=== PATIENT | female | born 1975 | race Caucasian/White ===

== ENCOUNTER 2017-06-05 12:51 | Emergency (ER) | payer BC ==
[2017-06-05] MEDS ORDERED: NS 0.9% 1000 ML* 1,000 ML IV ONE (13:22)
[2017-06-05 13:44] LABS: Hematocrit 42 % (35-47); Hemoglobin 14.2 g/dl (12.0-16.0); Mean Corpuscular HGB Conc 34 g/dl (31-36); Mean Corpuscular Hemoglobin 31 pg (27-31); Mean Corpuscular Volume 93 fL (80-97); Mean Platelet Volume 8 um3 (7.4-10.4); Red Blood Count 4.56 10^6/ul (4.0-5.4); Red Cell Distribution Width 13 % (10.5-15); White Blood Count 8.3 10^3/ul (3.5-10.8)
[2017-06-05 13:59] LABS: ALT 12 U/L (7-52); AST 13 U/L (13-39); Albumin 3.9 g/dL (3.2-5.2); Alkaline Phosphatase 43 U/L (34-104); Anion Gap 6 mmol/L (2-11); BUN/Creatinine Ratio 13.2 (8-20); Blood Urea Nitrogen 9 mg/dL (6-24); C Reactive Protein 1.65 mg/L (< 5.00); CO2 Carbon Dioxide 24 mmol/L (22-32); Calcium 9.3 mg/dL (8.6-10.3); Chloride 106 mmol/L (101-111); EGFR African American 123.9 (>60); EGFR Non-African American 96.3 (>60); Glucose 91 mg/dL (70-100); Lipase 12 U/L (11.0-82.0); Potassium 3.5 mmol/L (3.5-5.0); Sodium 136 mmol/L (133-145); Total Protein 6.9 g/dL (6.4-8.9)
[2017-06-05] MEDS ORDERED: Iohexol 300* (CONTRAST) 10 ML SDV IV ONE (14:57)
--- NOTE | 2017-06-05 15:04 | RAD ---
Indication: Right flank pain. Real-time sonography of the right kidney was performed. The right kidney measures 11.0 x 5.2 x 4.6 cm. No hydronephrosis is noted. IMPRESSION: No hydronephrosis of the right kidney is noted.
--- NOTE | 2017-06-05 15:14 | RAD ---
Indication: Right lower quadrant pain. Real-time sonography of the pelvis was performed. The uterus measures 10.2 x 6.2 x 7.2 cm. Endometrial echo measures 14 mm and is heterogeneous with cystic spaces. This may be due to the phase of patient's menstrual cycle and follow-up exam is suggested to exclude endometrial hyperplasia. Right ovary measures 3.3 x 2.0 x 1.5 cm. Left ovary is not visualized. IMPRESSION: Complex endometrium which may be due to the phase of patient's menstrual cycle although endometrial hyperplasia cannot be excluded. Left ovary is not visualized.
[2017-06-05 15:55] LABS: Urine Bacteria Absent (Absent); Urine Bilirubin Negative (Negative); Urine Glucose Negative (Negative); Urine Nitrite Negative (Negative)
--- NOTE | 2017-06-05 17:14 | RAD ---
Indication: Right lower quadrant pain. Contrast: Administered 105.0 ml of OMNIPAQUE 300 mg/ml CT of the abdomen and pelvis was performed after oral and IV contrast administration. Coronal and sagittal reconstructed images were obtained. The lung bases demonstrate no pleural fluid, nodules or masses. Heart is of normal size without evidence of pericardial effusion. The liver is normal in size. No focal lesions or intrahepatic ductal dilatation is noted. Patient status post cholecystectomy. The pancreas demonstrates no mass or pancreatic duct dilatation. The spleen is normal in size. No adrenal masses are noted. The kidneys demonstrate no hydronephrosis. Scarring and calcification are noted in the medial upper pole of the left kidney likely from old pyelonephritis. No retroperitoneal lymphadenopathy is noted. No dilated loops of bowel are noted. CT of the pelvis demonstrates a thickened base of the appendix. There is a hyperenhancing mucosa of the appendix with appendix measuring up to 6 mm. This is borderline abnormal. No retroperitoneal adenopathy is noted. No dilated loops of bowel. The uterus is otherwise unremarkable. No adnexal masses are noted. The urinary bladder is unremarkable. IMPRESSION: Thickening at the base of the cecum. There is a 6 mm appendix with hyperenhancing mucosa. The possibility of acute appendicitis should be considered. Findings discussed with Dr. Jacques at 1711 hours.
[2017-06-05] MEDS ORDERED: Ketorolac INJ* 30 MG/ML 1 ML VIAL IV ONE (18:49)
[2017-06-05] MEDS ORDERED: HYDROcodone/ACETAMIN 5-325 MG* 1 TAB PO ONE (18:49)
[2017-06-05] MEDS ORDERED: O ndansetron ODT 4MG 2TAB PRPK 4 MG PAK PO ONE ×2 (18:50→18:51)
--- NOTE | 2017-06-05 18:56 | ED ---
De Crawford Tecjoon, scribed for Georges Jacques MD on 06/05/17 at 1323 . Abdominal Pain/Female - HPI Summary HPI Summary: This patient is a 41 year old female presenting to [facility] accompanied by with a chief complaint of abdominal pain since 1100 today while at work. Patient states that pain originated on her right flank (right above hip) then radiated around to bellybutton and to groin. The pain is rated 7/10 in severity currently. The patient treated the pain with Tylenol [employer], which caused pain to transition from constant to coming and going. Symptoms aggravated by general movement, movement of right leg, and palpation. Symptoms alleviated by Tylenol. Patient additionally reports nausea. Patient denies vomiting, diarrhea , dysuria, hematuria, fevers, chills, blood in stool, or vaginal discharge. Patient denies a PMHx of ovarian cyst but notes that he most recent menstrual cycle was abnormally light. Patient is not on control. - History of Current Complaint Chief Complaint: EDPat Stated Complaint: RIGHT SIDE ABD PAIN Time Seen by Provider: 06/05/17 13:05 Hx Obtained From: Patient Hx Last Menstrual Period: Current Onset/Duration: Sudden Onset, Lasting Hours - 1100, Still Present Timing: Constant Severity Initially: Severe Severity Currently: Moderate Pain Intensity: 7 Pain Scale Used: 0-10 Numeric Location: Discrete At: RLQ, Suprapubic Radiates: Yes Aggravating Factor(s): Movement, Other: - palpation Alleviating Factor(s): Medications - tylenol Associated Signs and Symptoms: Positive: Negative - vomiting, diarrhea, dysuria , hematuria, fevers, chills, blood in stool, or abnormal vaginal discharge, Other: - nausea Allergies/Adverse Reactions: Allergies Allergy/AdvReac Type Severity Reaction Status Date / Time Sulfa Antibiotics Allergy Anaphylatic Verified 06/05/17 12:58 Shock PMH/Surg Hx/FS Hx/Imm Hx Previously Healthy: Yes Endocrine/Hematology History: Denies: Hx Diabetes History: Reports: Hx Kidney Stones Denies: Other Problems/Disorders - neg: ovarian cyst Opthamlomology History: Denies: Hx Legally Blind EENT History: Denies: Hx Deafness - Surgical History Surgery Procedure, Year, and Place: TUBAL LIGATION, CHOLECYSTECTOMY Infectious Disease History: No Infectious Disease History: Denies: Traveled Outside the [place] in Last 30 Days - Family History Known Family History: Negative: Hypertension, Diabetes - Social History Alcohol Use: Weekly Hx Substance Use: No Substance Use Type: Reports: None Hx Tobacco Use: Yes Smoking Status (MU): Heavy Every Day Tobacco Smoker Review of Systems Negative: Fever, Chills Gastrointestinal: Negative - blood in stool Positive: Abdominal Pain, Nausea. Negative: Vomiting, Diarrhea Genitourinary: Negative - abnormal vaginal discharge Negative: burning, dysuria, hematuria All Other Systems Reviewed And Are Negative: Yes Physical Exam - Summary Physical Exam Summary: General: mild pain distress Skin: warm, color reflects adequate perfusion, dry Head: normal Eyes: EOMI, VENKATESH ENT: normal Neck: supple, nontender Respiratory: CTA, breath sounds present Cardiovascular: RRR Abdomen: Tenderness in RLQ. Bowel: paraumbilically positive bowel sounds. Musculoskeletal: normal, strength/ROM intact Neurological: normal, sensory/motor intact, A&O x3 Psychological: affect/mood appropriate Triage Information Reviewed: Yes Vital Signs On Initial Exam: Initial Vitals Temp Pulse Resp BP Pulse Ox 97.4 F 89 17 122/90 96 06/05/17 12:54 06/05/17 12:54 06/05/17 12:54 06/05/17 12:54 06/05/17 12:54 Vital Signs Reviewed: Yes - Narinder Coma Scale Coma Scale Total: 15 Diagnostics - Vital Signs Vital Signs Temp Pulse Resp BP Pulse Ox 06/05/17 12:54 97.4 F 89 17 122/90 96 - Laboratory Lab Results: Lab Results 06/05/17 06/05/17 06/05/17 Range/Units 13:30 13:30 13:30 WBC 8.3 (3.5-10.8) 10^3/ul RBC 4.56 (4.0-5.4) 10^6/ul Hgb 14.2 (12.0-16.0) g/dl Hct 42 (35-47) % MCV 93 (80-97) fL MCH 31 (27-31) pg MCHC 34 (31-36) g/dl RDW 13 (10.5-15) % Plt Count 238 (150-450) 10^3/ul MPV 8 (7.4-10.4) um3 Neut % (Auto) 74.3 (38-83) % Lymph % (Auto) 19.0 L (25-47) % [place] % (Auto) 4.7 (1-9) % Eos % (Auto) 1.0 (0-6) % Baso % (Auto) 1.0 (0-2) % Absolute Neuts (auto) 6.1 (1.5-7.7) 10^3/ul Absolute Lymphs (auto) 1.6 (1.0-4.8) 10^3/ul Absolute Monos (auto) 0.4 (0-0.8) 10^3/ul Absolute Eos (auto) 0.1 (0-0.6) 10^3/ul Absolute Basos (auto) 0.1 (0-0.2) 10^3/ul Absolute Nucleated RBC 0 10^3/ul Nucleated RBC % 0 INR (Anticoag Therapy) 0.89 (0.77-1.02) APTT 33.2 (26.0-36.3) seconds Sodium 136 (133-145) mmol/L Potassium 3.5 (3.5-5.0) mmol/L Chloride 106 (101-111) mmol/L Carbon Dioxide 24 (22-32) mmol/L Anion Gap 6 (2-11) mmol/L BUN 9 (6-24) mg/dL Creatinine 0.68 (0.51-0.95) mg/dL Est GFR ( Amer) 123.9 (>60) Est GFR (Non-Af Amer) 96.3 (>60) BUN/Creatinine Ratio 13.2 (8-20) Glucose 91 (70-100) mg/dL Lactic Acid (0.5-2.0) mmol/L Calcium 9.3 (8.6-10.3) mg/dL Total Bilirubin 0.30 (0.2-1.0) mg/dL AST 13 (13-39) U/L ALT 12 (7-52) U/L Alkaline Phosphatase 43 (34-104) U/L C-Reactive Protein 1.65 (< 5.00) mg/L Total Protein 6.9 (6.4-8.9) g/dL Albumin 3.9 (3.2-5.2) g/dL Globulin 3.0 (2-4) g/dL Albumin/Globulin Ratio 1.3 (1-3) Lipase 12 (11.0-82.0) U/L Beta HCG, Quant < 0.60 mIU/mL Urine Color Urine Appearance Urine pH (5-9) Ur Specific [place] (1.010-1.030) Urine Protein (Negative) Urine Ketones (Negative) Urine Blood (Negative) Urine Nitrate (Negative) Urine Bilirubin (Negative) Urine Urobilinogen (Negative) Ur Leukocyte Esterase (Negative) Urine WBC (Auto) (Absent) Urine RBC (Auto) (Absent) Ur Squamous Epith Cells (Absent) Urine Bacteria (Absent) Urine Glucose (Negative) 06/05/17 06/05/17 Range/Units 13:30 15:36 WBC (3.5-10.8) 10^3/ul RBC (4.0-5.4) 10^6/ul Hgb (12.0-16.0) g/dl Hct (35-47) % MCV (80-97) fL MCH (27-31) pg MCHC (31-36) g/dl RDW (10.5-15) % Plt Count (150-450) 10^3/ul MPV (7.4-10.4) um3 Neut % (Auto) (38-83) % Lymph % (Auto) (25-47) % [place] % (Auto) (1-9) % Eos % (Auto) (0-6) % Baso % (Auto) (0-2) % Absolute Neuts (auto) (1.5-7.7) 10^3/ul Absolute Lymphs (auto) (1.0-4.8) 10^3/ul Absolute Monos (auto) (0-0.8) 10^3/ul Absolute Eos (auto) (0-0.6) 10^3/ul Absolute Basos (auto) (0-0.2) 10^3/ul Absolute Nucleated RBC 10^3/ul Nucleated RBC % INR (Anticoag Therapy) (0.77-1.02) APTT (26.0-36.3) seconds Sodium (133-145) mmol/L Potassium (3.5-5.0) mmol/L Chloride (101-111) mmol/L Carbon Dioxide (22-32) mmol/L Anion Gap (2-11) mmol/L BUN (6-24) mg/dL Creatinine (0.51-0.95) mg/dL Est GFR ( Amer) (>60) Est GFR (Non-Af Amer) (>60) BUN/Creatinine Ratio (8-20) Glucose (70-100) mg/dL Lactic Acid 0.5 (0.5-2.0) mmol/L Calcium (8.6-10.3) mg/dL Total Bilirubin (0.2-1.0) mg/dL AST (13-39) U/L ALT (7-52) U/L Alkaline Phosphatase (34-104) U/L C-Reactive Protein (< 5.00) mg/L Total Protein (6.4-8.9) g/dL Albumin (3.2-5.2) g/dL Globulin (2-4) g/dL Albumin/Globulin Ratio (1-3) Lipase (11.0-82.0) U/L Beta HCG, Quant mIU/mL Urine Color Straw Urine Appearance Clear Urine pH 6.0 (5-9) Ur Specific [place] 1.004 L (1.010-1.030) Urine Protein Negative (Negative) Urine Ketones Negative (Negative) Urine Blood 1+ H (Negative) Urine Nitrate Negative (Negative) Urine Bilirubin Negative (Negative) Urine Urobilinogen Negative (Negative) Ur Leukocyte Esterase Negative (Negative) Urine WBC (Auto) Absent (Absent) Urine RBC (Auto) Trace(0-2/hpf) (Absent) Ur Squamous Epith Cells Present H (Absent) Urine Bacteria Absent (Absent) Urine Glucose Negative (Negative) Result Diagrams: 06/05/17 13:30 06/05/17 13:30 Lab Statement: Any lab studies that have been ordered have been reviewed, and results considered in the medical decision making process. - CT CT Abd/Pel CT Interpretation: Positive (See Comments) - IMPRESSION: Thickening at the base of the cecum. There is a 6 mm appendix with hyperenhancing mucosa. The possibility of acute appendicitis should be considered. Findings discussed with Dr. Jacques at 1711 hours. ED physician has reviewed this radiology report. CT Interpretation Completed By: Radiologist - Additional Comments Diagnostic Additional Comments: US RENAL reveals, per radiologist, IMPRESSION: No hydronephrosis of the right kidney is noted. ED physician has reviewed this radiology report. US TRANSVAGINAL reveals, per radiologist, IMPRESSION: Complex endometrium which may be due to the phase of patient's menstrual cycle although endometrial hyperplasia cannot be excluded. Left ovary is not visualized. ED physician has reviewed this radiology report. Abdominal Pain Fem Course/Dx - Course Course Of Treatment: Bloodwork Obtained. Urinalysis Obtained. Medications reviewed. Allergies noted. DR NG, SURGERY, SAW PATIENT IN ED TO EVALUATE FOR POSSIBLE APPENDICITIS. HE DOES NOT BELIEVE THIS IS APPENDICITIS AT THIS TIME. PAIN IMPROVED IN ED WITH NO PAIN MEDICATION. DISCUSSED RESULTS WITH PATIENT AND HER TO INCLUDE THE EXACT CAUSE OF HER PAIN IS NOT DETERMINED AT THIS TIME AND SHE NEEDS TO RETURN TO THE EMERGENCY DEPARTMENT FOR ANY WORSENING OF HER CONDITION OR QUESTIONS/CONCERNS; SHE AGREES. F/U PMD; RETURN IF WORSE. - Diagnoses Provider Diagnoses: Abdominal pain, right lower quadrant Discharge - Discharge Plan Condition: Stable Disposition: HOME Patient Education Materials: Abdominal Pain (ED) Referrals: Deon ROBERTSON,Alan Chen [Primary Care Provider] - Additional Instructions: FOLLOW UP WITH YOUR DOCTOR. THE EXACT CAUSE OF YOUR ABDOMINAL PAIN IS NOT DETERMINED AT THIS TIME; RETURN TO THE EMERGENCY DEPARTMENT FOR ANY WORSENING OF YOUR CONDITION; PAIN, FEVER, VOMITING, YOU FEEL ILL OR QUESTIONS OR CONCERNS. The documentation as recorded by the De pittman Tecjoon accurately reflects the service I personally performed and the decisions made by me, Georges Jacques MD.
[2017-06-05 19:33] VITALS: BP 108/68
[2017-06-05] MEDS ORDERED: Ondansetron ODT TAB* 4 MG PO ONE (20:00)
--- NOTE | 2017-06-06 00:13 | CONS ---
CC: Alan Chavarria MD SURGICAL CONSULTATION: DATE OF CONSULT: 06/05/17 LOCATION: In the emergency room. CHIEF COMPLAINT: Right side abdominal pain. HISTORY OF PRESENT ILLNESS: This is a 41-year-old female with history of kidney stones, who presented to [facility] Emergency Room with a sudden onset of right flank pain radiating towards the right lower quadrant and across the abdomen. This has began about 11:30 a.m. today when she was simply sitting on a table. She states the pain was such that she felt she needed to stand up and change position; however, this did not alleviate her pain. She experienced nausea that subsequently subsided without any vomiting. She denies chills or fevers. She denies diarrhea or constipation and had a bowel movement this morning. She reports that she took some Tylenol without relief and subsequently she had her drive her into the emergency room. The patient presented to the emergency room at approximately 1 o'clock and she was then evaluated with blood work and imaging. Her CBC and chemistries were normal with normal CRP and her urine showed 1+ blood with trace rbc's. She underwent an ultrasound of the right kidney which did not reveal hydronephrosis and subsequently underwent a transvaginal ultrasound as well as a CT scan of the abdomen and pelvis with contrast. On the transvaginal ultrasound, she was noted to have a complex endometrium and the left ovary was not visualized. The right ovary appeared normal. On the CT scan, she was noted to have thickening at the base of the cecum and a 6-mm appendix with hyper-enhancing mucosa. Based on those findings, a surgical consultation was requested. At the time I saw the patient, she reports she was feeling better and had received no pain medication and no antiemetics. She reports that she is not hungry. She complains of some abdominal bloating. She no longer has any nausea. She denies any similar symptoms in the past. States when she had her kidney stones, she had back pain. She does admit to exposure to ill individuals as she works in a [employer]. She denies dysuria and states she is currently menstruating, but feels that her period is less heavy than typical. PAST MEDICAL HISTORY: Significant for history of reflux disease. PAST SURGICAL HISTORY: Significant for laparoscopic cholecystectomy and bilateral tubal ligation. MEDICATIONS: None. ALLERGIES: SULFA DRUGS have caused rash and difficulty breathing. FAMILY HISTORY: Mother has obesity and diabetes. Father in his 80s of unknown causes. SOCIAL HISTORY: She is a 20-pack year cigarette smoker. She drinks 6 alcoholic beverages a week on average. She denies other drug use. She is and she is employed. REVIEW OF SYSTEMS: A 14-point review was performed and was significant for the above positives and negatives, otherwise was negative. PHYSICAL EXAM: She is an overweight 41-year-old female, lying in the emergency room stretcher, in no acute distress. Her head is normocephalic and atraumatic. Sclerae anicteric. Mucous membranes are moist. She has no other rhinorrhea. Her abdomen has well-healed scars from prior laparoscopic procedures, is slightly protuberant with mild diffuse tenderness in the left lower quadrant greater than right with no Rovsing's sign. She has no hepatomegaly or splenomegaly. There is no rebound or guarding. The patient was asked to stand and was able to jump up and down without eliciting any pain. DIAGNOSTIC STUDIES/LAB DATA: As reported above and imaging data as reported above. The CT scan images were reviewed personally by me. IMPRESSION: A 41-year-old female with history of kidney stones with right flank pain, initially localizing to right lower quadrant with nonspecific GI complaints and no fever, leukocytosis, or elevation of her CRP. Findings are not suspicious for appendicitis and I would be more suspicious of ureterolithiasis, possibly early presentation of a viral GI illness. PLAN/RECOMMENDATIONS: I discussed my findings with the patient and her who accompanied her. I explained the differential diagnosis and I recommended against any operative intervention at this timeand I believe it is reasonable for her to be discharged home if she is tolerating oral intake. Disposition will be determined by Dr. Marcelo in the ED. [id number]/[facility] #: [id number] [place]
== END 2017-06-05 19:30 | disposition home or self-care (01) ==
LOC: ED 12:51
DX: R10.31 Right lower quadrant pain (principal); F17.200 Nicotine dependence, unspecified, uncomplicated; Z88.2 Allergy status to sulfonamides
CPT/HCPCS: 36415; 74177; 76775; 76830; 80053; 81003; 81015; 83605; 83690; 84702; 85025; 85610; 85730; 86140; 96374; 99285; A9270-GY; J1885; Q9967

== ENCOUNTER 2019-04-26 23:05 | Observation (INO) | payer BC ==
[2019-04-26 23:40] LABS: Urine Appearance Cloudy; Urine Bacteria Absent (Absent); Urine Bilirubin Negative (Negative); Urine Blood 3+ (Negative); Urine Color Yellow; Urine Glucose Negative (Negative); Urine Ketones Trace (Negative); Urine Nitrite Negative (Negative); Urine Protein Negative (Negative); Urine Red Blood Cell 2+(6-10/hpf) (Absent); Urine Specific Gravity 1.024 (1.010-1.030); Urine Squamous Epithelial Cell Present (Absent); Urine Urobilinogen Negative (Negative); Urine White Blood Cell Absent (Absent)
[2019-04-27] MEDS ORDERED: Ondansetron INJ* 2 MG/ML VIAL IV ONE (00:34)
[2019-04-27] MEDS ORDERED: Ketorolac INJ* 30 MG/ML 1 ML VIAL IV PUSH ONE (00:34)
[2019-04-27] MEDS ORDERED: NS 0.9% 1000 ML** 1,000 ML IV ONE ×3 (00:34→06:16)
[2019-04-27 00:39] LABS: ABS Eosinophils 0.1 10^3/ul (0-0.6); ABS Lymphocytes 1.2 10^3/ul (1.0-4.8); ABS Monocytes 0.5 10^3/ul (0-0.8); ABS Neutrophils 6.5 10^3/ul (1.5-7.7); Eosinophil % 0.9 %; Hematocrit 39 % (35-47); Hemoglobin 13.5 g/dL (12.0-16.0); Lymphocyte % 14.3 %; Mean Corpuscular HGB Conc 35 g/dL (31-36); Mean Corpuscular Hemoglobin 32 pg (27-31); Mean Corpuscular Volume 92 fL (80-97); Mean Platelet Volume 7.7 fL (7.4-10.4); Platelet Count 199 10^3/uL (150-450); Red Blood Count 4.25 10^6 /uL (3.70-4.87); Red Cell Distribution Width 14 % (10-15); White Blood Count 8.3 10^3/uL (3.5-10.8)
[2019-04-27 00:57] LABS: ALT 13 U/L (7-52); AST 14 U/L (13-39); Albumin/Globulin Ratio 1.4 (1-3); Alkaline Phosphatase 46 U/L (34-104); Anion Gap 4 mmol/L (2-11); BUN/Creatinine Ratio 23.6 (8-20); Blood Urea Nitrogen 17 mg/dL (6-24); C Reactive Protein 9.98 mg/L (<8.01); CO2 Carbon Dioxide 25 mmol/L (22-32); Chloride 106 mmol/L (101-111); EGFR Non-African American 89.3 (>60); Globulin 2.9 g/dL (2-4); Glucose 101 mg/dL (70-100); Potassium 3.6 mmol/L (3.5-5.0); Sodium 135 mmol/L (135-145); Total Protein 6.9 g/dL (6.4-8.9)
--- NOTE | 2019-04-27 01:05 | ED ---
GI/ HPI - HPI Summary HPI Summary: 43 year old female presents with abdominal pain today. States that is greatest on her right side. She states that she's had nausea vomiting. States she has not been passing any gas. Has not had a bowel movement in a while. She denies any fevers. Has had her gallbladder removed. Has history kidney stones with lithotripsy done in [place] recently. She states it does not feel like kidney stones in the past. she denies any flank pain. She denies any dysuria or hematuria. Is currently on her period. Hasn't taking anything for the pain. States pain is severe. Denies any chest pain and shortness of breath. no fevers. - History of Current Complaint Chief Complaint: EDAbdPain Time Seen by Provider: 04/27/19 00:19 Stated Complaint: ABDOMINAL PAIN PER PT Hx Last Menstrual Period: Current Pain Intensity: 10 - Allergy/Home Medications Allergies/Adverse Reactions: Allergies Allergy/AdvReac Type Severity Reaction Status Date / Time Sulfa (Sulfonamide Allergy Anaphylatic Verified 04/27/19 00:49 Antibiotics) Shock Home Medications: Home Medications NK [No Home Medications Reported] 04/27/19 [History Confirmed 04/27/19] PMH/Surg Hx/FS Hx/Imm Hx Endocrine/Hematology History: Denies: Hx Diabetes Cardiovascular History: Denies: Hx Hypertension History: Reports: Hx Kidney Stones Denies: Hx Renal Disease, Other Problems/Disorders - neg: ovarian cyst Sensory History: Denies: Hx Legally Blind, Hx Deafness Opthamlomology History: Denies: Hx Legally Blind - Surgical History Surgery Procedure, Year, and Place: TUBAL LIGATION, CHOLECYSTECTOMY Infectious Disease History: No Infectious Disease History: Denies: Traveled Outside the [place] in Last 30 Days - Family History Known Family History: Negative: Hypertension, Diabetes - Social History Alcohol Use: Occasionally Hx Substance Use: No Substance Use Type: Reports: None Hx Tobacco Use: Yes Smoking Status (MU): Heavy Every Day Tobacco Smoker Review of Systems Negative: Fever Negative: Chest Pain Negative: Shortness Of Breath Positive: Abdominal Pain, Vomiting, Nausea. Negative: Diarrhea All Other Systems Reviewed And Are Negative: Yes Physical Exam Triage Information Reviewed: Yes Vital Signs On Initial Exam: Initial Vitals Temp Pulse Resp BP Pulse Ox 98.6 F 92 18 123/86 98 04/26/19 23:08 04/26/19 23:08 04/26/19 23:08 04/26/19 23:08 04/26/19 23:08 Vital Signs Reviewed: Yes Appearance: Positive: Well-Appearing Skin: Positive: Warm, Dry Head/Face: Positive: Normal Head/Face Inspection Eyes: Positive: Normal, Conjunctiva Clear ENT: Positive: Pharynx normal Respiratory/Lung Sounds: Positive: Clear to Auscultation, Breath Sounds Present Cardiovascular: Positive: Normal, RRR Abdomen Description: Positive: Soft, Other: - tenderness greatest in RLQ Bowel Sounds: Positive: Absent Musculoskeletal: Positive: Normal Neurological: Positive: Normal Psychiatric: Positive: Normal Procedures - Sedation Patient Received Moderate/Deep Sedation with Procedure: No Diagnostics - Vital Signs Vital Signs Temp Pulse Resp BP Pulse Ox 04/27/19 00:14 94 102/69 92 04/26/19 23:08 98.6 F 92 18 123/86 98 - Laboratory Lab Results: Lab Results 04/26/19 04/27/19 04/27/19 Range/Units 23:26 00:30 00:30 WBC 8.3 (3.5-10.8) 10^3/uL RBC 4.25 (3.70-4.87) 10^6 /uL Hgb 13.5 (12.0-16.0) g/dL Hct 39 (35-47) % MCV 92 (80-97) fL MCH 32 H (27-31) pg MCHC 35 (31-36) g/dL RDW 14 (10-15) % Plt Count 199 (150-450) 10^3/uL MPV 7.7 (7.4-10.4) fL Neut % (Auto) 78.0 % Lymph % (Auto) 14.3 % Redwood % (Auto) 6.4 % Eos % (Auto) 0.9 % Baso % (Auto) 0.4 % Absolute Neuts (auto) 6.5 (1.5-7.7) 10^3/ul Absolute Lymphs (auto) 1.2 (1.0-4.8) 10^3/ul Absolute Monos (auto) 0.5 (0-0.8) 10^3/ul Absolute Eos (auto) 0.1 (0-0.6) 10^3/ul Absolute Basos (auto) 0.0 (0-0.2) 10^3/ul Absolute Nucleated RBC 0.0 10^3/ul Nucleated RBC % 0.0 Sodium 135 (135-145) mmol/L Potassium 3.6 (3.5-5.0) mmol/L Chloride 106 (101-111) mmol/L Carbon Dioxide 25 (22-32) mmol/L Anion Gap 4 (2-11) mmol/L BUN 17 (6-24) mg/dL Creatinine 0.72 (0.51-0.95) mg/dL Est GFR ( Amer) 108.0 (>60) Est GFR (Non-Af Amer) 89.3 (>60) BUN/Creatinine Ratio 23.6 H (8-20) Glucose 101 H (70-100) mg/dL Lactic Acid (0.5-2.0) mmol/L Calcium 9.0 (8.6-10.3) mg/dL Total Bilirubin 0.60 (0.2-1.0) mg/dL AST 14 (13-39) U/L ALT 13 (7-52) U/L Alkaline Phosphatase 46 (34-104) U/L C-Reactive Protein 9.98 H (<8.01) mg/L Total Protein 6.9 (6.4-8.9) g/dL Albumin 4.0 (3.2-5.2) g/dL Globulin 2.9 (2-4) g/dL Albumin/Globulin Ratio 1.4 (1-3) Lipase < 10 L (11.0-82.0) U/L Beta HCG, Quant 0.60 mIU/mL Urine Color Yellow Urine Appearance Cloudy Urine pH 5.0 (5-9) Ur Specific Blessing 1.024 (1.010-1.030) Urine Protein Negative (Negative) Urine Ketones Trace A (Negative) Urine Blood 3+ A (Negative) Urine Nitrate Negative (Negative) Urine Bilirubin Negative (Negative) Urine Urobilinogen Negative (Negative) Ur Leukocyte Esterase Negative (Negative) Urine WBC (Auto) Absent (Absent) Urine RBC (Auto) 2+(6-10/hpf) A (Absent) Ur Squamous Epith Cells Present A (Absent) Urine Bacteria Absent (Absent) Urine Glucose Negative (Negative) 04/27/19 Range/Units 00:30 WBC (3.5-10.8) 10^3/uL RBC (3.70-4.87) 10^6 /uL Hgb (12.0-16.0) g/dL Hct (35-47) % MCV (80-97) fL MCH (27-31) pg MCHC (31-36) g/dL RDW (10-15) % Plt Count (150-450) 10^3/uL MPV (7.4-10.4) fL Neut % (Auto) % Lymph % (Auto) % Redwood % (Auto) % Eos % (Auto) % Baso % (Auto) % Absolute Neuts (auto) (1.5-7.7) 10^3/ul Absolute Lymphs (auto) (1.0-4.8) 10^3/ul Absolute Monos (auto) (0-0.8) 10^3/ul Absolute Eos (auto) (0-0.6) 10^3/ul Absolute Basos (auto) (0-0.2) 10^3/ul Absolute Nucleated RBC 10^3/ul Nucleated RBC % Sodium (135-145) mmol/L Potassium (3.5-5.0) mmol/L Chloride (101-111) mmol/L Carbon Dioxide (22-32) mmol/L Anion Gap (2-11) mmol/L BUN (6-24) mg/dL Creatinine (0.51-0.95) mg/dL Est GFR ( Amer) (>60) Est GFR (Non-Af Amer) (>60) BUN/Creatinine Ratio (8-20) Glucose (70-100) mg/dL Lactic Acid 0.5 (0.5-2.0) mmol/L Calcium (8.6-10.3) mg/dL Total Bilirubin (0.2-1.0) mg/dL AST (13-39) U/L ALT (7-52) U/L Alkaline Phosphatase (34-104) U/L C-Reactive Protein (<8.01) mg/L Total Protein (6.4-8.9) g/dL Albumin (3.2-5.2) g/dL Globulin (2-4) g/dL Albumin/Globulin Ratio (1-3) Lipase (11.0-82.0) U/L Beta HCG, Quant mIU/mL Urine Color Urine Appearance Urine pH (5-9) Ur Specific Blessing (1.010-1.030) Urine Protein (Negative) Urine Ketones (Negative) Urine Blood (Negative) Urine Nitrate (Negative) Urine Bilirubin (Negative) Urine Urobilinogen (Negative) Ur Leukocyte Esterase (Negative) Urine WBC (Auto) (Absent) Urine RBC (Auto) (Absent) Ur Squamous Epith Cells (Absent) Urine Bacteria (Absent) Urine Glucose (Negative) Result Diagrams: 04/27/19 00:30 04/27/19 00:30 Lab Statement: Any lab studies that have been ordered have been reviewed, and results considered in the medical decision making process. Re-Evaluation - Re-Evaluation First Eval Re-Evaluation Time: 01:41 Change: Improved Comment: feeling better, pain resolved GIGU Course/Dx - Course Course Of Treatment: 43 year old female presents with abdominal pain today. States that is greatest on her right side. admits to nausea vomiting. admits to constipation and is not passing gas. Has had her gallbladder removed. Has history kidney stones with lithotripsy done in [place] recently. On exam tenderness greatest on the right side of abdomen. Normal wbc. CRP normal. Urine shows hematuria which may be due to menses. patient will be signed out to dr grissom pending CT. - Diagnoses Differential Diagnoses - Female: Appendicitis, Bowel Obstruction, Ureteral Calculi Provider Diagnoses: Abdominal pain Discharge ED - Sign-Out/Discharge Documenting (check all that apply): Sign-Out Patient Signing out patient TO: Henry Grissom - Discharge Plan Referrals: Deon ROBERTSON,Alan Chen [Primary Care Provider] -
[2019-04-27] MEDS ORDERED: Iohexol 300* (CONTRAST) 10 ML SDV IV ONE (02:12)
--- NOTE | 2019-04-27 03:44 | ED ---
Progress - Progress Note Progress Note: Patient is received as a sign-out from NONI Kristy Cassandra at [place] shift end at approximately 0230 04/27/[address] ABD/PEL. CT ABD/PEL IMPRESSION: 1. Slightly prominent appendix. Acute appendicitis cannot be entirely excluded. 2. Cholecystectomy. 3. Scarring and calyceal cyst involving the upper pole of the left kidney. THIS REPORT WAS REVIEWED BY DR. GILL. 0408 - Results of CT ABD/PEL were discussed with the patient. General surgery to be contacted. Re-Evaluation - Re-Evaluation First Eval Re-Evaluation Time: 04:08 Comment: 0408 - Results of CT ABD/PEL were discussed with the patient. General surgery to be contacted. Second Eval Re-Evaluation Time: 04:27 Comment: Surgery consult was discussed with the patient, she is agreeable with plan of care. Course/Dx - Course Course Of Treatment: Patient is received as a sign-out from NONI Kristy Cassandra at [place] shift end at approximately 0230 04/27/[address] ABD/PEL. CT ABD/PEL IMPRESSION: 1. Slightly prominent appendix. Acute appendicitis cannot be entirely excluded. 2. Cholecystectomy. 3. Scarring and calyceal cyst involving the upper pole of the left kidney. THIS REPORT WAS REVIEWED BY DR. GILL. 0408 - Results of CT ABD/PEL were discussed with the patient. 0419 - Patient's case was discussed with general surgery, Dr. Alysia Kc. Patient will be observed in ED and repeat CBC to be obtained. By 7 am the toradol will have worn off and we will see if her pain progresses. If she develops more pain and/ or leukocytosis I think she should be seen by a general surgeon. Patient is signed-out to Dr. Barone at 0700 04/27/19 shift change pending CBC and further workup as needed. - Diagnoses Provider Diagnoses: Appendicitis - Provider Notifications Discussed Care Of Patient With: Alysia Kc Time Discussed With Above Provider: 04:19 Instructed by Provider To: Other - 0406 - Dr. Farah called with results of CT ABD/PEL; 0419 - Patient's case was discussed with general surgery, Dr. Alysia Kc. Patient will be observed in ED and repeat CBC to be obtained. Discharge ED - Sign-Out/Discharge Documenting (check all that apply): Sign-Out Patient, Receiving Sign-Out Signing out patient TO: Darcy Barone Receiving patient FROM: Rosy Trujillo - Discharge Plan Condition: Stable Disposition: ADMITTED TO [facility] - Billing Disposition and Condition Condition: STABLE Disposition: Admitted to [facility] - Attestation Statements Document Initiated by Miguel: Yes Documenting Scribe: MARIMAR FISHER Provider For Whom Miguel is Documenting (Include Credential): SHANTAL GILL MD Scribe Attestation: IMARIMAR, scribed for SHANTAL GILL MD on 04/27/19 at 1913. Scribe Documentation Reviewed: Yes Provider Attestation: The documentation as recorded by the MARIMAR pittman accurately reflects the service I personally performed and the decisions made by me, SHANTAL GILL MD Status of Scribe Document: Viewed
[2019-04-27] MEDS ORDERED: Morphine 4 MG/ML VIAL (1 ml) 4 MG/ML VIAL IV ONE (05:41)
[2019-04-27 07:08] LABS: ABS Eosinophils 0.1 10^3/ul (0-0.6); ABS Lymphocytes 1.4 10^3/ul (1.0-4.8); ABS Monocytes 0.3 10^3/ul (0-0.8); ABS Neutrophils 4.1 10^3/ul (1.5-7.7); Eosinophil % 0.9 %; Hematocrit 36 % (35-47); Hemoglobin 12.1 g/dL (12.0-16.0); Lymphocyte % 24.2 %; Mean Corpuscular HGB Conc 34 g/dL (31-36); Mean Corpuscular Hemoglobin 32 pg (27-31); Mean Corpuscular Volume 93 fL (80-97); Mean Platelet Volume 7.7 fL (7.4-10.4); Nucleated Red Blood Cells % 0.1; Platelet Count 156 10^3/uL (150-450); Red Blood Count 3.82 10^6 /uL (3.70-4.87); Red Cell Distribution Width 13 % (10-15); White Blood Count 5.9 10^3/uL (3.5-10.8)
--- NOTE | 2019-04-27 07:15 | ED ---
Progress - Progress Note Progress Note: This patient is a sign out from Dr. Whitmore to Dr. Barone pending repeat labs. Course/Dx - Course Course Of Treatment: This pt was signed out by Dr. Whitmore pending repeat labs. Discussed the case with Dr. Kc, surgeon, who will have surgery consult for patient. Surgery came and evaluated the patient. Pt will be admitted to surgery. - Diagnoses Provider Diagnoses: Appendicitis - Provider Notifications Discussed Care Of Patient With: Alysia Kc Time Discussed With Above Provider: 07:19 Instructed by Provider To: Other - Discussed the case with Dr. Kc, surgeon, who reports surgery will consult on the patient. Discharge ED - Sign-Out/Discharge Documenting (check all that apply): Patient Departure - Admit to [facility], Receiving Sign-Out Receiving patient FROM: Henry Whitmore - Discharge Plan Condition: Stable Disposition: ADMITTED TO [facility] - Billing Disposition and Condition Condition: STABLE Disposition: Admitted to [facility] - Attestation Statements Document Initiated by Miguel: Yes Documenting Scribe: Monique Day Provider For Whom Miguel is Documenting (Include Credential): Darcy Barone MD Scribe Attestation: Monique Crawford, scribed for Darcy Barone MD on 04/27/19 at 1326. Scribe Documentation Reviewed: Yes Provider Attestation: The documentation as recorded by the Monique pittman accurately reflects the service I personally performed and the decisions made by Darcy martin MD Status of Scribe Document: Viewed
[2019-04-27] MEDS ORDERED: Lactated Ringers 1000 ML Bag* 1,000 ML IV ONE (09:06)
[2019-04-27] MEDS ORDERED: Acetaminophen TAB* 325 MG PO PRN (09:18)
[2019-04-27] MEDS ORDERED: HYDROmorphone INJ* 0.5 MG/0.5 ML SYRINGE IV SLOW PU PRN (09:18)
--- NOTE | 2019-04-27 09:41 | HP ---
CC: [facility] [[email or web address]] Clinic in [facility].* DATE OF ADMISSION: 04/27/19 ATTENDING SURGEON: Dr. Alysia Kc * (dictated by NONI Jimenez) CHIEF COMPLAINT: Abdominal pain. HISTORY OF PRESENT ILLNESS: This is a 43-year-old, generally healthy smoker who noted onset of right-sided abdominal pain beginning yesterday afternoon around 2 p.m. She felt that she needed to move her bowels, but was unable. Pain was described as colicky and beginning in the right lower quadrant but eventually extending to the area under the umbilicus. It has been associated with anorexia and nausea, but no vomiting. She denies fever or chills. Pain at its peak has been 10/10, but at present she states it is 5/10. She has received both Toradol and morphine here in the [place]. She's not had similar pain in the past. She does have a history of kidney stones; and, in fact, has a small non-obstructing punctate stone on the right, but states that this pain is very dissimilar to previous kidney stones. She's not had any recent suspect food ingestion or travel history. Her only previous abdominal surgeries have been laparoscopic cholecystectomy and tubal ligation. PAST MEDICAL HISTORY: 1. Active smoker (attempting to quit, and has a prescription for Chantix which she has not yet started). 2. Nephrolithiasis (had recent procedure, possibly ESWL though she's not sure, in [place], with stent placement which was since removed.) PAST SURGICAL HISTORY: Include above-noted procedures as well as cyst removal from the left axilla. No reported anesthesia problems. CURRENT MEDICATIONS: None. (She does have an Albuterol MDI which she uses about once a year.) DRUG ALLERGIES: SULFA (difficulty breathing). She also has a GI sensitivity to a second antibiotic which she cannot recall the name of. FAMILY HISTORY: Negative for anesthesia problems, bleeding or clotting problems. SOCIAL HISTORY: Patient lives with her boyfriend. She has four daughters, two of which live at home. She's a smoker of one pack per day, and is anticipating quitting. She drinks up to two drinks per day, but not every day. She denies any recreational drug use. 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 REVIEW OF SYSTEMS: General - as above per HPI. No other recent constitutional symptoms or acute illnesses. Her weight has been stable. Skin - no rashes or lesions of note. HEENT - no problems noted other than recent vision check with acuity changes. Cardiovascualr - no chest pain, palpitations, history of heart murmur or hypertension. Respiratory - smoking history as noted. She does use an Albuterol inhaler, but rarely. No recent or acute changes. GI - as above per HPI. - she does have hematuria, but has her menses at present. No other additions. 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 Endocrine - no diabetes or thyroid dysfunction. PHYSICAL EXAMINATION GENERAL: Height 5 ft 7 inches, weight 180 lbs. Well nourished, somewhat-obese female in no acute distress. She appears mildly uncomfortable. Skin warm and dry, no suspicious rashes or lesions. VITAL SIGNS: Temperature 98.6, blood pressure ranging from 78-110/53-81, pulse 84, respirations 16, room air saturation 95%. HEENT: Pupils equal, round and reactive. EOMs intact. No conjunctival pallor or scleral icterus. Oropharynx - mucous membranes slightly dry, no intra-oral lesions. NECK: No lymphadenopathy, thyromegaly or masses. HEART: Regular rate and rhythm, no murmur noted. LUNGS: Clear to auscultation. No rales or wheezes. BREASTS: Not examined. ABDOMEN: Well-healed prior laparoscopic incisions, mildly obese. Bowel sounds are present and normoactive. Abdomen is soft with moderate tenderness ranging from McBurney's point to the suprapubic area, but concentrated most in the right lower quadrant. There's some mild rebound, no referred tenderness, no guarding or rigidity. No palpable masses or hernias. GENITALIA AND RECTAL: Not done. BACK: No spinous process or CVA tenderness. EXTREMITIES: No edema. NEUROLOGICAL: Grossly intact. LABORATORY: Noted white blood cell count initially 8,300, repeat 5,900; hemoglobin 13.5, repeat 12.1. CRP is mildly elevated at 10. Liver functions, lipase are normal. HCG is negative. CT with IV fluoro contrast was personally reviewed as well as the report; it does show a punctate, non-obstructing right renal calculus as well as scarring in the upper pole of the left kidney. There is a prominent appendix measuring up to 8 mm in diameter with mild periappendiceal stranding consistent with possible appendicitis. IMPRESSION: Acute appendicitis. PLAN: Patient also seen by Dr. Alysia Kc and will discuss findings and plan, likely for laparoscopic appendectomy. NONI JIMENEZ [id number]/[facility] #: [id number] [facility] HOSPITALShelbi
[2019-04-27] MEDS ORDERED: Piperacillin/Tazobactam VIAL*) 3.375 GM in NS 0.9% 100 ML* 100 ML IVPB SCH (10:00)
[2019-04-27] MEDS ORDERED: Buffered Lidocaine 1% SYRIN* 1 ML/SYRINGE INTRADERM ONE (10:10)
[2019-04-27] MEDS ORDERED: Famotidine IV* 10 MG/ML 2 ML (20 mg) IV ONE (10:10)
[2019-04-27] MEDS ORDERED: Levalbuterol 0.63MG/3ML NEB* UNIT OF USE INH ONE (10:10)
[2019-04-27] MEDS ORDERED: Dexamethasone IV* 4 MG/ML 1 ML (4 MG) IV SLOW PU ONE (10:10)
[2019-04-27] MEDS ORDERED: PROCHLORPERAZINE INJ 5 MG/ML 2 ML VIAL IV PRN (10:12)
[2019-04-27] MEDS ORDERED: Naloxone* 0.4 MG/ML 1 ML VIAL IV PRN (10:12)
[2019-04-27] MEDS ORDERED: Scopolamine 1.5 mg* PATCH TRANSDERM PRN (10:12)
[2019-04-27] MEDS ORDERED: DiMENhydriNATE IV* 50 MG/ML VIAL IV PUSH PRN (10:12)
[2019-04-27] MEDS ORDERED: HYDROmorphone INJ1* 1 MG/ML SYRINGE IV PRN (10:12)
[2019-04-27] MEDS ORDERED: fentaNYL* 50 MCG/ML 2 ML VIAL (100 MCG VIAL) IV PRN (10:12)
[2019-04-27] MEDS ORDERED: Lactated Ringers 1000 ML Bag* 1,000 ML IV SCH (11:00)
[2019-04-27] MEDS: NS 0.9% 1000 ML** 1,000 ML IV SCH ×2 (11:08→20:30)
--- NOTE | 2019-04-27 11:08 | PN ---
Progress Note - Progress Note Date of Service: 04/27/19 SOAP: Subjective: Patient seen and examined CT reviewed Care discussed with NONI Mathis Objective: Temp Pulse Resp BP Pulse Ox 98.7 F 78 18 127/76 98 04/27/19 10:53 04/27/19 10:53 04/27/19 10:53 04/27/19 10:53 04/27/19 10:53 PEX: Comfortable Abd is soft and non-distended. Bowel sounds are present. Tenderness RLQ with guarding, no generalized pain Assessment: Acute appendicitis Plan: Laparoscopic appendectomy today. Procedure discussed with patient and the risks of, but not limited to, of bleeding, infection, abscess, injury to peritoneal and retroperitoneal structures, open procedure, blood clots, and anesthesia discussed. We also discussed non-operative management with IV abx and I do not recommend this, she would like to proceed with surgery.
[2019-04-27] MEDS ORDERED: Ondansetron INJ* 2 MG/ML VIAL IV PRN (11:13)
[2019-04-27] MEDS: Morphine INJ* 2 MG/ML 1 ML SYRINGE (TWO MG - NEW SYRINGE VERSION) IV PRN ×2 (11:30→15:50)
[2019-04-27] MEDS: Piperacillin/Tazobactam VIAL*) 3.375 GM in NS 0.9% 100 ML* 100 ML IVPB SCH (15:45)
[2019-04-27] MEDS ORDERED: Midazolam* 1 MG/ML 2 ML VIAL (2 MG) ONE (23:17)
[2019-04-27] MEDS ORDERED: fentaNYL* 50 MCG/ML 2 ML VIAL (100 MCG VIAL) ONE (23:17)
[2019-04-27] MEDS ORDERED: Famotidine IV* 10 MG/ML 2 ML (20 mg) ONE (23:33)
[2019-04-27] MEDS ORDERED: Bupivacaine 0.25% EPI 200,000* 30 ML SDV ONE (23:54)
[2019-04-27] MEDS ORDERED: Lidocaine 2% PF * 5 ML VIAL ONE (23:59)
[2019-04-28] MEDS ORDERED: Succinylcholine* 20 MG/ML 10 ML VIAL ONE
[2019-04-28] MEDS ORDERED: Ondansetron INJ* 2 MG/ML VIAL ONE
[2019-04-28] MEDS ORDERED: Dexamethasone IV* 4 MG/ML 1 ML (4 MG) ONE
[2019-04-28] MEDS ORDERED: Cisatracurium* 2 MG/ML MDV 5 ML ONE
[2019-04-28] MEDS ORDERED: Propofol* 10 MG/ML 20 ML BTL ONE
[2019-04-28] MEDS ORDERED: Ketorolac INJ* 30 MG/ML 1 ML VIAL ONE
--- NOTE | 2019-04-28 | OP ---
Operative Report - Blank - Operative Report Date of Operation: 04/28/19 Note: OPERATIVE REPORT Pre-op: Acute appendicitis Post-Op: Same Procedure:Laparoscopic appendectomy Surgeon: MD Livan Asst: none Anes: general with local , Dr. Gomes IVF:1 liter of crystalloid EBL:min Specimen: appendix Drain: Wound: 3 Findings:Acute suppurative appendicitis To PACU
[2019-04-28] MEDS: Piperacillin/Tazobactam VIAL*) 3.375 GM in NS 0.9% 100 ML* 100 ML IVPB SCH (00:02)
[2019-04-28] MEDS ORDERED: EPHEDrine (Pressors)* 50 MG/ML VIAL ONE (00:12)
[2019-04-28] MEDS ORDERED: Neostigmine Methylsulfate* 3 MG/3 ML SYRINGE ONE (01:02)
[2019-04-28] MEDS ORDERED: oxyCODONE/Acetamin 5/325 MG* TAB PO PRN (01:21)
[2019-04-28] MEDS ORDERED: Scopolamine 1.5 mg* PATCH ONE (01:21)
[2019-04-28] MEDS ORDERED: fentaNYL* 50 MCG/ML 2 ML VIAL (100 MCG VIAL) ONE (01:41)
[2019-04-28 03:06] VITALS: BP 117/74
[2019-04-28] MEDS ORDERED: oxyCODONE/Acetamin 5/325 MG* TAB ONE (03:09)
--- NOTE | 2019-04-28 03:14 | OP ---
CC: [facility]; Geoffrey Chavarria OPERATIVE REPORT: DATE OF OPERATION: 04/28/19 DATE OF : 79 SURGEON: Dr. Licona. CIGARETTE PACKER: None. ANESTHESIOLOGIST: Dr. Gomes. ANESTHESIA: Local with general. PREOPERATIVE DIAGNOSIS: Acute appendicitis. POSTOPERATIVE DIAGNOSIS: Acute suppurative appendicitis. OPERATIVE PROCEDURE: Laparoscopic appendectomy. ESTIMATED BLOOD LOSS: Minimal. IV FLUIDS: 1 L of crystalloids. SPECIMEN: Appendix. WOUND CLASSIFICATION: III. COMPLICATIONS: None. DRAINS: None. FINDINGS: Acute suppurative appendicitis without evidence of gangrene or perforation. Terminal ileu m, cecum, and right ovary were all unremarkable. DESCRIPTION OF PROCEDURE: Written informed consent was obtained. The abdomen was marked with indeli ble ink and preoperative antibiotics were administered. The patient was taken to the operating room and placed in the supine position. Sequential compression devices and a warming blanket were applied. General anesthesia was administered. The abdomen was prepped and draped in the usual sterile fashi on. Time-out verification was completed. A small transverse incision was made just above the umbilicus at the midline. The peritoneal cavity was entered under direct vision. A 12-mm port was then placed and the abdomen was insufflated to 15 mmHg. Under direct vision, a 5-mm port was placed in the left lower abdominal wall and a second 5-mm port w as placed in the suprapubic position. There was some serous fluid in the pelvis, which was aspirated. The ovary in the right and uterus ap peared to be unremarkable. The terminal ileum and cecum were normal. The appendix was identified, it was completely intraperitoneal. The distal half was suppuratively in flamed with edema and it was mildly dilated consistent with the preoperative diagnosis. The mesoappendix was then divided with the LigaSure from the tip to the base of the cecum. The proxi mal half of the appendix and the cecum appeared to be unremarkable and brown load of a 30 mm Endo-CHRISTOPHER s tapler was used to amputate the appendix. It was placed in EndoCatch bag and brought out through the umbilical incision. The staple line was intact and hemostasis was assured. The right lower quadrant and pelvis were irri gated. All ports removed under direct vision of the camera and there was no abdominal wall bleeding. The umbilical fascia was closed with several interrupted 0 Vicryl suture. The skin at all 3 incisi ons was approximated with a subcuticular 4-0 Vicryl suture. Steri-Strips were applied. The patient tolerated the procedure well, was taken to the recovery room in stable condition. [id number] #: [id number]
[2019-04-30] MEDS ORDERED: Scopolamine PATCH Remove* 1 NOTE MISC PATCH OFF ONE (10:13)
== END 2019-04-28 03:31 | disposition home or self-care (01) ==
LOC: ED 23:05 → SSU 04-27 09:18
PROVIDERS: ADMIT Surgery; ATTEND Surgery
DX: R10.31 Right lower quadrant pain (principal); K35.80 Unspecified acute appendicitis; Z90.49 Acquired absence of other specified parts of digestive tract; Z88.2 Allergy status to sulfonamides; Z87.442 Personal history of urinary calculi; F17.210 Nicotine dependence, cigarettes, uncomplicated
CPT/HCPCS: 36415; 74177; 80053; 81003; 81015; 83605; 83690; 84702; 85025; 86140; 88304; 96361; 96365; 96366; 96375; 96376; 99285; A9270-GY; G0378; J0330; J1100; J1885; J2250; J2270; J2405; J2543; J2704; J2710; J3010; Q9967